=== PATIENT | female | born 1990 | race Caucasian/White ===

== ENCOUNTER 2018-02-11 21:30 | Inpatient (IN) | payer OTHER, BC ==
[~2018-02-11] VITALS: Ht 167.6 cm; Wt 146.0 kg
[2018-02-11 21:45] VITALS: BP 168/76; PULSE 115; RESP 18; TEMP 99; O2SAT 99
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
[2018-02-11] MEDS ORDERED: oxyCODONE/ACETAMINOPHEN 5 MG/325 MG TAB PO ONE (22:30)
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
[2018-02-12] VITALS (7 sets, daily range): BP systolic 110–161; BP diastolic 52–85; PULSE 68–115; RESP 18–21; TEMP 98.2–98.4; O2SAT 97–99
[2018-02-12 00:22] LABS: AUTOMATED NEUTROPHIL # 10.5 TH/MM3 (1.8-7.7); BASOPHIL # 0.1 TH/MM3 (0-0.2); BASOPHIL % 0.4 % (0.0-2.0); EOSINOPHIL % 0.3 % (0.0-4.0); HEMATOCRIT 33.3 % (35.0-46.0); HEMOGLOBIN 10.6 GM/DL (11.6-15.3); LYMPHOCYTE # 3.3 TH/MM3 (1.0-4.8); MEAN CORPUSCULAR HEMOGLOBIN 20.7 PG (27.0-34.0); MEAN CORPUSCULAR HGB CONC 31.9 % (32.0-36.0); MEAN PLATELET VOLUME 8.4 FL (7.0-11.0); MONO % 6.4 % (0.0-8.0); NEUT % 70.9 % (16.0-70.0); PLATELET COUNT 564 TH/MM3 (150-450); RED BLOOD COUNT 5.12 MIL/MM3 (4.00-5.30); RED CELL DISTRIBUTION WIDTH 16.8 % (11.6-17.2); WHITE BLOOD COUNT 14.8 TH/MM3 (4.0-11.0)
[2018-02-12 00:32] LABS: PROTHROMBIN TIME - PATIENT 10.5 SEC (9.8-11.6)
[2018-02-12] MEDS ORDERED: LACTULOSE SYRUP 20 GM/30 ML CUP PO PRN (00:45)
[2018-02-12] MEDS ORDERED: MAGNESIUM HYDROXIDE SUSP 30 ML CUP PO PRN (00:45)
[2018-02-12] MEDS ORDERED: SENNOSIDES 8.6 MG TAB PO PRN (00:45)
[2018-02-12] MEDS ORDERED: BISACODYL 10 MG SUPP RECTAL PRN (00:45)
[2018-02-12] MEDS ORDERED: CHLORHEXIDINE GLUCONATE 2 % 1 PACK (2 CLOTHS) TOP PRN (00:45)
[2018-02-12] MEDS ORDERED: ACETAMINOPHEN/HYDROcodone 325 MG/5 MG TAB PO PRN (00:45)
[2018-02-12] MEDS ORDERED: NURSING INFORMATION XX SCH (00:45)
[2018-02-12] MEDS ORDERED: METOPROLOL TARTRATE 5 MG/5 ML VIAL IV PUSH PRN (00:45)
[2018-02-12] MEDS ORDERED: ACETAMINOPHEN/HYDROcodone 325 MG/10 MG TAB PO PRN (00:45)
[2018-02-12] MEDS ORDERED: ACETAMINOPHEN 325 MG TAB PO PRN (00:45)
[2018-02-12] MEDS ORDERED: SODIUM CHLORIDE 0.9% FLUSH 10 ML FLUSH IV FLUSH PRN ×2 (00:45)
[2018-02-12] MEDS ORDERED: ONDANSETRON HCL 4 MG/2 ML VIAL IVP PRN (00:45)
[2018-02-12 00:48] LABS: BLOOD UREA NITROGEN 10 MG/DL (7-18); CHLORIDE 97 MEQ/L (98-107); CREATININE 1.11 MG/DL (0.50-1.00); GLOMERULAR FILTRATION RATE 58 ML/MIN (>89); GLUCOSE,RANDOM 101 MG/DL (74-106); SODIUM (NA) 137 MEQ/L (136-145)
[2018-02-12 00:49] LABS: BICARBONATE 33.3 MEQ/L (21.0-32.0)
[2018-02-12] MEDS ORDERED: POTASSIUM CHLORIDE 10 MEQ CONTROLLED RELEASE TAB PO ONE ×2 (01:00→17:30)
[2018-02-12] MEDS ORDERED: POTASSIUM CHLOR 20 MEQ PREMIX 100 ML IV ONE ×2 (01:00→17:30)
[2018-02-12] MEDS ORDERED: ALPRAZolam 0.25 MG TAB PO PRN (02:00)
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
[2018-02-12] MEDS ORDERED: CHLORHEXIDINE GLUCONATE 2 % 1 PACK (2 CLOTHS) TOP SCH (04:00)
[2018-02-12] MEDS: DOCUSATE SODIUM 50 MG/SENNA 8.6 MG TAB PO SCH ×2 (09:00→20:35)
[2018-02-12] MEDS: SODIUM CHLORIDE 0.9% FLUSH 10 ML FLUSH IV FLUSH SCH ×2 (09:00→20:35)
[2018-02-12 13:39] LABS: BICARBONATE 31.9 MEQ/L (21.0-32.0); CALCIUM 8.4 MG/DL (8.5-10.1); CREATININE 0.89 MG/DL (0.50-1.00); MAGNESIUM 2.2 MG/DL (1.5-2.5)
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
[2018-02-12] MEDS ORDERED: ENALAPRILAT 1.25 MG/ML VIAL IV PUSH PRN (17:30)
[2018-02-12] MEDS ORDERED: cloNIDine HCL 0.1 MG TAB PO PRN (17:30)
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
[2018-02-12] MEDS ORDERED: HYDR-3583 PO (17:32)
--- NOTE | 2018-02-12 17:33 | HHI.DCPOC ---
Discharge Care Plan Diagnosis: (1) ICH (intracerebral hemorrhage) Your Health Problems Are: Difficulty with ADL Exercise Tolerance Goals to Promote Your Health * To prevent worsening of your condition and complications * To maintain your health at the optimal level Directions to Meet Your Goals Take your medications as prescribed Follow your dietary instruction Follow activity as directed Keep your appointments as scheduled Take your immunizations and boosters as scheduled If your symptoms worsen call your PCP, if no PCP go to Urgent Care Center or Emergency Room Smoking is Dangerous to Your Health. Avoid second hand smoke Call the 24-hour hour crisis hotline for domestic abuse at Demetri Loya MD February 12, 2018 17:33
[2018-02-12] MEDS ORDERED: LOSA100T7 (18:08)
[2018-02-12] MEDS ORDERED: NORE0.354 PO (18:10)
[2018-02-12] MEDS: POTASSIUM CHLORIDE 20 MEQ CONTROLLED RELEASE TAB PO SCH (20:35)
[2018-02-13 00:35] VITALS: BP 139/69; PULSE 92; RESP 16; TEMP 98.7; O2SAT 97
[2018-02-13 04:45] VITALS: BP 126/80; PULSE 88; RESP 16; TEMP 98.1; O2SAT 95
[2018-02-13 07:09] LABS: AUTOMATED NEUTROPHIL # 6.8 TH/MM3 (1.8-7.7); BASOPHIL % 0.5 % (0.0-2.0); EOSINOPHIL # 0.1 TH/MM3 (0-0.4); EOSINOPHIL % 0.7 % (0.0-4.0); HEMOGLOBIN 9.8 GM/DL (11.6-15.3); LYMPH % 28.5 % (9.0-44.0); MEAN CELL VOLUME 65.6 FL (80.0-100.0); MEAN CORPUSCULAR HEMOGLOBIN 20.8 PG (27.0-34.0); MEAN CORPUSCULAR HGB CONC 31.7 % (32.0-36.0); MEAN PLATELET VOLUME 8.5 FL (7.0-11.0); MONO % 6.1 % (0.0-8.0); MONOCYTE # 0.7 TH/MM3 (0-0.9); NEUT % 64.2 % (16.0-70.0); PLATELET COUNT 509 TH/MM3 (150-450); RED BLOOD COUNT 4.73 MIL/MM3 (4.00-5.30); RED CELL DISTRIBUTION WIDTH 16.5 % (11.6-17.2); WHITE BLOOD COUNT 10.7 TH/MM3 (4.0-11.0)
[2018-02-13 07:30] LABS: ALBUMIN 3.3 GM/DL (3.4-5.0); AST (GOT) 40 U/L (15-37); BICARBONATE 29.8 MEQ/L (21.0-32.0); BLOOD UREA NITROGEN 9 MG/DL (7-18); CALCIUM 8.6 MG/DL (8.5-10.1); CHLORIDE 101 MEQ/L (98-107); CREATININE 0.91 MG/DL (0.50-1.00); GLOMERULAR FILTRATION RATE 73 ML/MIN (>89); GLUCOSE,RANDOM 100 MG/DL (74-106); SODIUM (NA) 140 MEQ/L (136-145)
[2018-02-13 07:32] LABS: ALT (GPT) 57 U/L (10-53)
[2018-02-13 07:33] LABS: ALKALINE PHOSPHATASE 65 U/L (45-117); TOTAL BILIRUBIN ADULT 0.4 MG/DL (0.2-1.0); TOTAL PROTEIN 7.6 GM/DL (6.4-8.2)
[2018-02-13 08:00] VITALS: BP 122/73; PULSE 90; RESP 18; TEMP 98.1; O2SAT 98
--- NOTE | 2018-02-13 08:02 | RADRPT ---
EXAM DATE/TIME: 02/13/2018 07:39 [facility] COMPARISON: CT BRAIN W/O CONTRAST, February 11, 2018, 22:39. INDICATIONS : Follow up possible bleed/basal ganglia contusion. Abnormal CT 2 days ago. RADIATION DOSE: 41.68 CTDIvol (mGy) MEDICAL HISTORY : Hypertension. SURGICAL HISTORY : None. ENCOUNTER: Subsequent ACUITY: 2 days PAIN SCALE: 0/10 LOCATION: cranial TECHNIQUE: Multiple contiguous axial images were obtained of the head. Using automated exposure control and adj ustment of the mA and/or kV according to patient size, radiation dose was kept as low as reasonably a chievable to obtain optimal diagnostic quality images. DICOM format image data is available electro nically for review and comparison. FINDINGS: CEREBRUM: Punctate region of increased density in the left basal ganglia is not evident on current exam. The ve ntricles are normal for age. No evidence of midline shift, mass lesion, hemorrhage or acute infarcti on. No extra-axial fluid collections are seen. POSTERIOR FOSSA: The cerebellum and brainstem are intact. The 4th ventricle is midline. The cerebellopontine angle i s unremarkable. EXTRACRANIAL: The visualized portion of the orbits is intact. SKULL: The calvaria is intact. No evidence of skull fracture. CONCLUSION: 1. Interval resolution of punctate increased density in the left basal ganglia. Suspect this was edwardo factual although a very punctate region of hemorrhage may potentially evolve similarly in this interv al. Eugene Palmer MD on February 13, 2018 at 7:55 Board Certified Radiologist. This report was verified electronically.
[2018-02-13] MEDS: SODIUM CHLORIDE 0.9% FLUSH 10 ML FLUSH IV FLUSH SCH (08:09)
[2018-02-13] MEDS: POTASSIUM CHLORIDE 20 MEQ CONTROLLED RELEASE TAB PO SCH (08:10)
[2018-02-13] MEDS: DOCUSATE SODIUM 50 MG/SENNA 8.6 MG TAB PO SCH (08:11)
[2018-02-13] MEDS ORDERED: LOSARTAN SCH (09:00)
[2018-02-13] MEDS ORDERED: HYDROCHLOROTHIAZIDE SCH (09:00)
[2018-02-13] MEDS ORDERED: POTASSIUM CHLOR 20 MEQ PREMIX 100 ML IV ONE (09:30)
[2018-02-13] MEDS ORDERED: POTASSIUM CHLORIDE 10 MEQ CONTROLLED RELEASE TAB PO ONE (09:30)
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
[2018-02-13] MEDS ORDERED: POTA20TA5 PO (09:32)
[2018-02-13] MEDS ORDERED: NORETHINDRONE PO SCH (09:45)
[2018-02-13] MEDS ORDERED: LOSARTAN 50 MG TAB PO SCH (09:45)
[2018-02-13] MEDS ORDERED: HYDROCHLOROTHIAZIDE 25 MG TAB PO SCH (09:45)
[2018-02-13 12:00] VITALS: BP 141/91; PULSE 88; RESP 18; TEMP 98.6; O2SAT 99
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
== END 2018-02-13 13:42 | disposition home or self-care (01) | DRG 86 ==
LOC: NEPD 21:30 → NEDA 02-12 00:29 → OBSVTOIN 02-12 00:41 → NEDH 02-12 05:20 → N03B 02-12 08:34 → N06A 02-12 21:35
PROVIDERS: ADMIT Internal Medicine; ATTEND Internal Medicine
DX: S06.350A Traumatic hemorrhage of left cerebrum without loss of consciousness, initial encounter (principal); Z68.43 Body mass index [BMI] 50.0-59.9, adult; I10 Essential (primary) hypertension; E66.01 Morbid (severe) obesity due to excess calories; V47.1XXA Car passenger injured in collision with fixed or stationary object in nontraffic accident, initial encounter; Y92.488 Other paved roadways as the place of occurrence of the external cause; E87.6 Hypokalemia; F41.9 Anxiety disorder, unspecified; E28.2 Polycystic ovarian syndrome; R74.0 Nonspecific elevation of levels of transaminase and lactic acid dehydrogenase [LDH]; D64.9 Anemia, unspecified
CPT/HCPCS: 70450; 71045; 72100; 72125; 80048; 80053; 83735; 84702; 84703; 85025; 85610; 85730; 99285; J3480

== ENCOUNTER 2018-03-05 02:38 | Emergency (ER) | payer OTHER, BC ==
[~2018-03-05] VITALS: Ht 167.6 cm; Wt 146.0 kg
[~2018-03-05 02:38] MED LIST: HYDR-3583 PO; LOSA100T7; NORE0.354 PO; POTA20TA5 PO
[2018-03-05 02:40] VITALS: BP 133/59; PULSE 120; RESP 20; TEMP 98.5; O2SAT 98
[2018-03-05] MEDS ORDERED: ALPR.25 PO (02:42)
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
[2018-03-05] MEDS ORDERED: SODIUM CHLORID 0.9% 500 ML INJ 500 ML IV ONE (03:15)
[2018-03-05 03:40] LABS: AUTOMATED NEUTROPHIL # 7.2 TH/MM3 (1.8-7.7); BASOPHIL # 0.1 TH/MM3 (0-0.2); BASOPHIL % 0.6 % (0.0-2.0); EOSINOPHIL # 0.1 TH/MM3 (0-0.4); EOSINOPHIL % 0.5 % (0.0-4.0); HEMATOCRIT 32.5 % (35.0-46.0); HEMOGLOBIN 10.6 GM/DL (11.6-15.3); LYMPH % 22.6 % (9.0-44.0); LYMPHOCYTE # 2.3 TH/MM3 (1.0-4.8); MEAN CELL VOLUME 63.7 FL (80.0-100.0); MEAN CORPUSCULAR HEMOGLOBIN 20.9 PG (27.0-34.0); MEAN CORPUSCULAR HGB CONC 32.8 % (32.0-36.0); MEAN PLATELET VOLUME 8.5 FL (7.0-11.0); MONO % 6.5 % (0.0-8.0); MONOCYTE # 0.7 TH/MM3 (0-0.9); NEUT % 69.8 % (16.0-70.0); PLATELET COUNT 508 TH/MM3 (150-450); RED CELL DISTRIBUTION WIDTH 17.6 % (11.6-17.2); WHITE BLOOD COUNT 10.4 TH/MM3 (4.0-11.0)
[2018-03-05 03:53] LABS: CHLORIDE 98 MEQ/L (98-107); SODIUM (NA) 139 MEQ/L (136-145)
[2018-03-05 03:58] LABS: INTERNATIONAL NORMALIZED RATIO 1.1 RATIO; PROTHROMBIN TIME - PATIENT 10.7 SEC (9.8-11.6)
[2018-03-05 03:59] VITALS: BP_SYST 124; BP_SYST 128; BP_SYST 139; BP_DIAS 56; BP_DIAS 59; BP_DIAS 65
[2018-03-05 04:00] VITALS: BP 134/59; PULSE 104; RESP 22; O2SAT 98
[2018-03-05 04:01] LABS: D-DIMER 0.26 MG/L FEU (0.00-0.50)
[2018-03-05] MEDS ORDERED: POTASSIUM CHLORIDE 20 MEQ CONTROLLED RELEASE TAB PO ONE (04:15)
[2018-03-05 04:17] LABS: ALBUMIN 3.4 GM/DL (3.4-5.0); AST (GOT) 35 U/L (15-37); BICARBONATE 30.2 MEQ/L (21.0-32.0); BLOOD UREA NITROGEN 10 MG/DL (7-18); CALCIUM 8.5 MG/DL (8.5-10.1); CREATININE 1.06 MG/DL (0.50-1.00); GLOMERULAR FILTRATION RATE 61 ML/MIN (>89); GLUCOSE,RANDOM 102 MG/DL (74-106)
[2018-03-05 04:26] LABS: ALKALINE PHOSPHATASE 60 U/L (45-117); ALT (GPT) 58 U/L (10-53); TOTAL BILIRUBIN ADULT 0.4 MG/DL (0.2-1.0); TOTAL PROTEIN 7.6 GM/DL (6.4-8.2); TROPONIN I LESS THAN 0.02 NG/ML (0.02-0.05)
[2018-03-05 05:00] VITALS: BP 120/58; PULSE 88; RESP 21; O2SAT 97
[2018-03-05] MEDS ORDERED: IOHEXOL 350 MG/ML 10 ML VIAL (for RAD DIAG) IVCONTRAST ONE (06:42)
--- NOTE | 2018-03-05 06:43 | RADRPT ---
EXAM DATE: 03/05/2018 6:38 AM EDT AGE/SEX: 27 years / Female INDICATIONS: Syncopal episode. CLINICAL DATA: This is the patient's initial encounter. Patient reports that signs and symptoms have been present for 1 day and indicates a pain score of 0/10. MEDICAL/SURGICAL HISTORY: Hypertension. Cardiovascular disease. None. RADIATION DOSE: 56.35 CTDI (mGy) COMPARISON: [facility] [place], CT BRAIN W/O CONTRAST, 02/13/2018. . TECHNIQUE: CT of the head without contrast. Using automated exposure control and adjustment of the mA and/or kV according to patient size, radiation dose was kept as low as reasonably achievable to ob tain optimal diagnostic quality images. FINDINGS: There is no evidence for intracranial hemorrhage, mass effect, mass lesions, edema, or extra-axial fl uid collections. The visualized bony structures appear intact. The ventricles are normal size for t he patient's age. There are no signs of acute infarction for technique. CONCLUSION: Unremarkable study. Electronically signed by: Pattie Blanca MD 03/05/2018 6:41 AM EDT
--- NOTE | 2018-03-05 06:50 | RADRPT ---
EXAM DATE: 03/05/2018 6:42 AM EDT AGE/SEX: 27 years / Female INDICATIONS: Shortness of breath. CLINICAL DATA: This is the patient's initial encounter. Patient reports that signs and symptoms have been present for 1 day and indicates a pain score of 0/10. MEDICAL/SURGICAL HISTORY: Hypertension. Cardiovascular disease. None. RADIATION DOSE: 10.75 CTDI (mGy) COMPARISON: [facility] – [place], CHEST SINGLE AP, 02/11/2018. . TECHNIQUE: Volumetric scanning was performed using a multi-row detector CT scanner during bolus infu mercedes of 75 ml Omnipaque 350 (iohexol) nonionic water-soluble contrast as a single exam dose. The yareli a was post processed with a variety of visualization algorithms including full volume maximum intensi ty projection and sliding thin slab reformation. Using automated exposure control and adjustment of the mA and/or kV according to patient size, radiation dose was kept as low as reasonably achievable t o obtain optimal diagnostic quality images. FINDINGS: The lungs are clear without infiltrate, nodule, or mass. There is no pleural effusion. No appreciab le pathological adenopathy is seen within the mediastinum. There is no evidence of PE for technique. CONCLUSION: Unremarkable study. Electronically signed by: Pattie Blanca MD 03/05/2018 6:48 AM EDT
--- NOTE | 2018-03-05 07:54 | EKG ---
Date Performed: 03/05/2018 Time Performed: 03:49:54 PTAGE: 27 years EKG: Sinus rhythm INCOMPLETE RIGHT BUNDLE BRANCH BLOCK BORDERLINE ECG NO PREVIOUS TRACING DOCTOR: Monster Walsh Interpretating Date/Time 03/05/2018 07:52:12
== END 2018-03-05 07:16 | disposition home or self-care (01) ==
LOC: NEPE 02:38
DX: R55 Syncope and collapse (principal); R06.02 Shortness of breath; R94.31 Abnormal electrocardiogram [ECG] [EKG]; F41.9 Anxiety disorder, unspecified; I10 Essential (primary) hypertension; E28.2 Polycystic ovarian syndrome; Z87.898 Personal history of other specified conditions; Z72.0 Tobacco use
CPT/HCPCS: 70450; 71275; 80053; 82550; 83735; 84443; 84484; 85025; 85379; 85610; 85730; 93005; 96360; 99285; J7040; Q9967